=== PATIENT | female | born 1935 | race Caucasian/White ===

== ENCOUNTER 2016-11-09 16:59 | Emergency (ER) | payer MEDICARE ==
[~2016-11-09] VITALS: Ht 160 cm; Wt 61.4 kg
[~2016-11-09 16:59] MED LIST: ASPIRIN 32325 MG/TAB PO; ATIVAN 1MG T1 MG/TAB PO; FOLIC ACID0.4 MG PO; GENTLE LAXATIVE5 MG PO; IRON TABLETS325 MG PO; NORCO 325 MG-7.1 TAB PO; PAXIL 20MG20 MG PO; RELAFEN 50500 MG/TAB PO; ROXICODONE 55 MG/TAB PO; TIROSINT50 MCG PO; TYLENOL W/COD1 UDTAB PO; VITAMIN C500 MG PO; ZOCOR 20MG20 MG PO
[2016-11-09 17:02] VITALS: TEMP 98.5
[2016-11-09 17:34] LABS: BASO % 0.7 % (0.0-2.0); EOS # 0.2 (0.0-0.7); EOS % 2.8 % (0-4.0); GRAN # 3.7 (1.4-6.5); GRAN % 60.2 % (42.2-75.2); HEMOGLOBIN 12.5 g/dl (12.5-16.0); LYMPH # 1.8 (1.2-3.4); LYMPH % 29.3 % (20.0-51.0); MEAN CELL VOLUME 97 fl (80.0-100.0); MEAN CORPUSCULAR HEMOGLOBIN 32 pg (27.0-31.0); MEAN CORPUSCULAR HGB CONC 33 g/dl (33.0-37.0); MEAN PLATELET VOLUME 10.2 fl (7.4-10.4); MONO # 0.4 (0.1-0.6); MONO % 6.7 % (1.7-9.3); PLATELET COUNT 231 K/mm3 (130-400); RED BLOOD COUNT 3.91 M/mm3 (4.10-5.30); REDCELL DISTRIBUTION WIDTH-CV 12.1 % (11.5-14.5); WHITE BLOOD COUNT 6.1 K/mm3 (4.8-10.8)
[2016-11-09 17:44] LABS: ALBUMIN 4.3 gm/dL (3.5-5.0); BILIRUBIN,TOTAL 0.4 mg/dL (0.0-1.0); CALCIUM 9.2 mg/dL (8.4-10.2); CREATININE, serum 0.68 mg/dL (0.52-1.25); POTASSIUM 3.6 mmol/L (3.4-5.0)
[2016-11-09] MEDS ORDERED: NEURONTIN600 MG/TAB PO (17:54)
[2016-11-09] MEDS ORDERED: ASPIRIN E.C. 8181 MG PO (17:54)
[2016-11-09] MEDS ORDERED: ATIVAN 1MG T1 MG/TAB PO (17:55)
[2016-11-09] MEDS ORDERED: LEADER CLE17 GM/Dose PO (17:56)
[2016-11-09] MEDS ORDERED: BACTRIM DS 8001 TAB PO (17:57)
[2016-11-09] MEDS ORDERED: EFFEXOR-XR150 MG PO (17:58)
[2016-11-09] MEDS ORDERED: MACROBID 1100 MG/CAP PO (17:59)
[2016-11-09] MEDS ORDERED: ZITHROMAX TRI-500 MG PO (18:00)
[2016-11-09] MEDS ORDERED: NORCO 325 MG-51 TAB PO (19:26)
[2016-11-09 19:40] VITALS: BP 121/65; PULSE 79
[2016-11-10] MEDS ORDERED: LIDODERM 5% PATC1 EA TP (07:55)
[2016-11-10] MEDS ORDERED: VALTREX1 GM PO (07:55)
[2016-11-10] MEDS ORDERED: PERCOCET 325 MG1 TA2 PO (07:55)
== END 2016-11-09 19:40 | disposition home or self-care (01) ==
LOC: COL.ER 16:59
PROVIDERS: Emergency Medicine
DX: R10.11 Right upper quadrant pain (principal); K44.9 Diaphragmatic hernia without obstruction or gangrene; M54.89 Other dorsalgia; M79.7 Fibromyalgia
CPT/HCPCS: J1885; J2270; Q9967

== ENCOUNTER 2016-11-10 06:32 | Emergency (ER) | payer MEDICARE ==
[~2016-11-10] VITALS: Ht 160 cm; Wt 61.4 kg
[~2016-11-10 06:32] MED LIST changes: +ASPIRIN E.C. 8181 MG PO; +BACTRIM DS 8001 TAB PO; +EFFEXOR-XR150 MG PO; +LEADER CLE17 GM/Dose PO; +MACROBID 1100 MG/CAP PO; +NEURONTIN600 MG/TAB PO; +NORCO 325 MG-51 TAB PO; +ZITHROMAX TRI-500 MG PO
[2016-11-10 06:35] VITALS: TEMP 98.6
[2016-11-10 07:12] LABS: BASO % 0.8 % (0.0-2.0); EOS # 0.2 (0.0-0.7); EOS % 3.3 % (0-4.0); GRAN # 3.2 (1.4-6.5); GRAN % 61.9 % (42.2-75.2); HEMATOCRIT 37.2 % (37.0-47.0); HEMOGLOBIN 12.2 g/dl (12.5-16.0); LYMPH # 1.4 (1.2-3.4); LYMPH % 26.5 % (20.0-51.0); MEAN CELL VOLUME 97 fl (80.0-100.0); MEAN CORPUSCULAR HEMOGLOBIN 32 pg (27.0-31.0); MEAN CORPUSCULAR HGB CONC 33 g/dl (33.0-37.0); MEAN PLATELET VOLUME 9.9 fl (7.4-10.4); MONO # 0.4 (0.1-0.6); MONO % 7.3 % (1.7-9.3); PLATELET COUNT 210 K/mm3 (130-400); RED BLOOD COUNT 3.84 M/mm3 (4.10-5.30); REDCELL DISTRIBUTION WIDTH-CV 12.2 % (11.5-14.5); WHITE BLOOD COUNT 5.2 K/mm3 (4.8-10.8)
[2016-11-10 07:35] LABS: ADJUSTED CALCIUM 8.9 mg/dL (8.4-10.2); ALANINE AMINOTRANSFERASE 26 U/L (9-52); ALKALINE PHOSPHATASE 51 U/L (50-136); ANION GAP 9 mmol/L (7-16); BILIRUBIN,TOTAL 0.5 mg/dL (0.0-1.0); BLOOD UREA NITROGEN 8 mg/dL (7-17); CALCIUM 8.9 mg/dL (8.4-10.2); CARBON DIOXIDE 28 mmol/L (22-30); CHLORIDE 100 mmol/L (98-107); CREATININE, serum 0.68 mg/dL (0.52-1.25); GLUCOSE 100 mg/dL (74-106); POTASSIUM 3.5 mmol/L (3.4-5.0); SODIUM 137 mmol/L (137-145); TOTAL PROTEIN 6.6 gm/dL (6.4-8.2)
[2016-11-10 07:37] LABS: C-REACTIVE PROTEIN < 0.5 mg/dL (0.0-0.9)
[2016-11-10] MEDS ORDERED: PERCOCET 325 MG1 TA2 PO (07:55)
[2016-11-10] MEDS ORDERED: LIDODERM 5% PATC1 EA TP (07:55)
[2016-11-10] MEDS ORDERED: VALTREX1 GM PO (07:55)
[2016-11-10 09:05] VITALS: BP 153/73; PULSE 74
== END 2016-11-10 08:45 | disposition home or self-care (01) ==
LOC: COL.ER 06:32
PROVIDERS: Family Medicine
DX: B02.9 Zoster without complications (principal); Z79.82 Long term (current) use of aspirin
CPT/HCPCS: J2270; J2405; J3010; J7030

== ENCOUNTER 2020-03-26 19:21 | Emergency (ER) | payer MEDICARE ==
[~2020-03-26 19:21] MED LIST changes: +LIDODERM 5% PATC1 EA TP; +PERCOCET 325 MG1 TA2 PO; +VALTREX1 GM PO
[2020-03-26 20:26] LABS: BASO % 0.4 % (0.0-2.0); EOS # 0.1 (0.0-0.7); EOS % 1.8 % (0-4.0); GRAN # 3.3 (1.4-6.5); GRAN % 65.8 % (42.2-75.2); HEMATOCRIT 38.5 % (37.0-47.0); HEMOGLOBIN 12.7 g/dl (12.5-16.0); LYMPH % 19.1 % (20.0-51.0); MEAN CELL VOLUME 98 fl (80.0-100.0); MEAN CORPUSCULAR HEMOGLOBIN 32 pg (27.0-31.0); MEAN CORPUSCULAR HGB CONC 33 g/dl (33.0-37.0); MEAN PLATELET VOLUME 10.4 fl (7.4-10.4); MONO # 0.6 (0.1-0.6); MONO % 12.5 % (1.7-9.3); PLATELET COUNT 263 K/mm3 (130-400); RED BLOOD COUNT 3.94 M/mm3 (4.10-5.30); REDCELL DISTRIBUTION WIDTH-CV 11.9 % (11.5-14.5)
[2020-03-26 20:39] LABS: BILIRUBIN,TOTAL 0.6 mg/dL (0.0-1.0); C-REACTIVE PROTEIN 1.9 mg/dL (0.0-0.9); CALCIUM 9.4 mg/dL (8.4-10.2); CREATININE, serum 0.82 (0.52-1.25); POTASSIUM 4.4 mmol/L (3.4-5.0); TOTAL PROTEIN 6.9 gm/dL (6.4-8.2)
[2020-03-26 23:02] LABS: COLLECTION METHOD CATHETER
[2020-03-26 23:18] VITALS: BP 123/56; PULSE 76; TEMP 98.4
[2020-03-26 23:29] LABS: MUCOUS Present /lpf; PH 5 (5-8); SQUAMOUS EPITHELIAL 0-2 /hpf; URINE APPEARANCE Cloudy; URINE BACTERIA None Seen /hpf; URINE BILIRUBIN Negative (NEGATIVE); URINE BLOOD Negative (NEGATIVE); URINE COLOR Amber; URINE GLUCOSE Negative (NEGATIVE); URINE KETONE Negative (NEGATIVE); URINE LEUKOCYTE ESTERASE 2+ (NEGATIVE); URINE NITRATE Negative (NEGATIVE); URINE PROTEIN(semi-quant) 1+ (NEGATIVE); URINE UROBILINOGEN Negative (NEGATIVE)
[2020-03-28] MEDS ORDERED: CEFTIN 250250 MG/TAB PO (10:21)
== END 2020-03-26 23:21 | disposition home or self-care (01) ==
LOC: COL.ER 19:21
PROVIDERS: Nurse Practitioner
DX: U07.1 COVID-19 (principal); Z79.82 Long term (current) use of aspirin
CPT/HCPCS: J7030